=== PATIENT | male | born 1985 | race African-American/Black ===

== ENCOUNTER 2021-07-25 12:28 | Emergency (ER) | payer SELFPAY ==
[~2021-07-25] VITALS: Ht 182.9 cm; Wt 86.2 kg
[2021-07-25 12:49] VITALS: BP 114/64
[2021-07-25] MEDS ORDERED: IBUP-2213 PO (14:57)
[2021-07-25] MEDS ORDERED: CARB15DR61 OT (14:57)
== END 2021-07-25 15:08 | disposition home or self-care (01) ==
LOC: MED 12:28
DX: H61.23 Impacted cerumen, bilateral (principal); Z88.0 Allergy status to penicillin
CPT/HCPCS: 99282

== ENCOUNTER 2021-08-01 14:20 | Emergency (ER) | payer SELFPAY ==
[~2021-08-01] VITALS: Ht 182.9 cm; Wt 74.8 kg
[~2021-08-01 14:20] MED LIST: CARB15DR61 OT; IBUP-2213 PO
[2021-08-01 14:28] VITALS: BP 132/83
--- NOTE | 2021-08-01 14:31 | NUR ---
PT SENT TO LOBBY
[2021-08-01] MEDS ORDERED: OFLO5SOL27 LEFT EAR (15:39)
--- NOTE | 2021-08-01 15:46 | NUR ---
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
--- NOTE | 2021-08-01 15:55 | NUR ---
Patient discharged with v/s stable. Written and verbal after care instructions ABOUT EAR IRRIGATION given and explained. Patient alert, oriented and verbalized understanding of instructions. Ambulatory with steady gait. All questions addressed prior to discharge. ID band removed. Patient advised to follow up with PMD. Rx of OFLOXACIN given. Patient educated on indication of medication including possible reaction and side effects. Opportunity to ask questions provided and answered.
== END 2021-08-01 15:55 | disposition home or self-care (01) ==
LOC: MED 14:20
DX: H61.22 Impacted cerumen, left ear (principal); Z79.2 Long term (current) use of antibiotics; Z79.1 Long term (current) use of non-steroidal anti-inflammatories (NSAID); Z79.899 Other long term (current) drug therapy; Z88.0 Allergy status to penicillin
CPT/HCPCS: 99283

== ENCOUNTER 2022-03-06 15:28 | Emergency (ER) | payer SELFPAY ==
[~2022-03-06] VITALS: Ht 182.9 cm; Wt 86.2 kg
[~2022-03-06 15:28] MED LIST changes: +OFLO5SOL27 LEFT EAR
[2022-03-06 15:34] VITALS: BP 110/68
[2022-03-06] MEDS ORDERED: CLIN300C2 PO (16:08)
== END 2022-03-06 16:17 | disposition home or self-care (01) ==
LOC: MED 15:28
DX: K08.89 Other specified disorders of teeth and supporting structures (principal); Z79.899 Other long term (current) drug therapy; Z79.2 Long term (current) use of antibiotics; Z79.1 Long term (current) use of non-steroidal anti-inflammatories (NSAID); Z88.0 Allergy status to penicillin
CPT/HCPCS: 99283

== ENCOUNTER 2022-03-12 02:20 | Emergency (ER) | payer SELFPAY ==
[~2022-03-12] VITALS: Ht 182.9 cm; Wt 88.6 kg
[~2022-03-12 02:20] MED LIST changes: +CLIN300C2 PO
[2022-03-12 02:37] VITALS: BP 117/85
--- NOTE | 2022-03-12 02:45 | NUR ---
PT WALKED TO BED 3 STEADY.
--- NOTE | 2022-03-12 02:53 | NUR ---
36 Y.O. M BIB [facility] C/O 06/29 rt ear pain x1hr. pt states he was trying sleep when pain began. PT DENIES TRAUMA AND THE USE OF Q-TIPS. PT STATED THAT HE WAS JUST GETTING TO SLEEP WHEN THE PAIN STARTED. PTS VITALS ARE STABLE, NO SIGNS OF RESPIRTORY DISTRESS, SKIN IS INTACT, A&OX4, AND GCS 15. denies hx, rx and allergies
--- NOTE | 2022-03-12 02:59 | NUR ---
Dr. Cho examming patient.
[2022-03-12] MEDS: ACETAMINOPHEN 325 MG TAB PO ONE (03:10)
[2022-03-12] MEDS: IBUPROFEN 400 MG TAB PO ONE (03:11)
[2022-03-12] MEDS: HYDROGEN PEROXIDE 3% 240 ML BTL TP ONE (03:15)
[2022-03-12] MEDS ORDERED: OFLO5SOL27 RIGHT EAR (03:44)
[2022-03-12 04:00] VITALS: BP 121/90
--- NOTE | 2022-03-12 04:00 | NUR ---
The patient's care was reviewed and supervised by Fatuma Shahid RN.
--- NOTE | 2022-03-12 04:00 | NUR ---
Patient discharged with v/s stable. Written and verbal after care instructions given and explained. Patient alert, oriented and verbalized understanding of instructions. Ambulatory with steady gait. All questions addressed prior to discharge. ID band removed. Patient advised to follow up with PMD. Rx of OFLOXACIN given. Patient REVIEWED on indication of medication including possible reaction and side effects. Opportunity to ask questions provided and answered. ID WRIST BAND REMOVED.
== END 2022-03-12 04:00 | disposition home or self-care (01) ==
LOC: MED 02:20
DX: H60.91 Unspecified otitis externa, right ear (principal); H61.21 Impacted cerumen, right ear; K21.9 Gastro-esophageal reflux disease without esophagitis; Z88.0 Allergy status to penicillin; Z79.899 Other long term (current) drug therapy
CPT/HCPCS: 99284

== ENCOUNTER 2022-03-16 19:37 | Emergency (ER) | payer SELFPAY ==
[~2022-03-16] VITALS: Ht 182.9 cm; Wt 86.2 kg
[~2022-03-16 19:37] MED LIST changes: +OFLO5SOL27 RIGHT EAR
[2022-03-16 19:58] VITALS: BP 130/78
--- NOTE | 2022-03-16 21:31 | NUR ---
PATIENT LEFT WITHOUT BEING SEEN BY DR. HILLMAN. NO FURTHER CARE PROVIDED FOR PATIENT.
== END 2022-03-16 21:31 | disposition left against medical advice (07) ==
LOC: MED 19:37
DX: H92.02 Otalgia, left ear (principal); Z53.21 Procedure and treatment not carried out due to patient leaving prior to being seen by health care provider